=== PATIENT | female | born 1990 | race Caucasian/White ===

== ENCOUNTER 2016-08-16 18:30 | Emergency (ER) | payer MEDICAID ==
[2009-10-21 20:14] VITALS: BMI 37.7
== END 2016-08-16 21:13 | disposition left against medical advice (07) ==
LOC: D.ER 18:30
DX: M54.5 Low back pain (principal)

== ENCOUNTER 2016-12-17 20:14 | Emergency (ER) | payer MEDICAID ==
[2009-10-21 20:14] VITALS: BMI 37.7
== END 2016-12-17 21:18 | disposition home or self-care (01) ==
LOC: D.ER 20:14
DX: M54.5 Low back pain (principal)

== ENCOUNTER 2018-05-31 22:03 | Emergency (ER) | payer SELFPAY ==
[~2018-05-31] VITALS: Ht 177.8 cm; Wt 127.3 kg
[2018-05-31 22:29] VITALS: Ht 177.8 cm; Wt 127.3 kg
[2018-06-01] MEDS ORDERED: VOLTAREN75 MG PO (00:27)
[2018-06-01] MEDS ORDERED: MEDROL DOSE PACK4 MG PO (00:27)
[2018-06-01 00:45] VITALS: BP 118/86
== END 2018-06-01 00:45 | disposition home or self-care (01) ==
LOC: D.ER 22:03
DX: M72.2 Plantar fascial fibromatosis (principal)

== ENCOUNTER 2019-08-10 20:27 | Emergency (ER) | payer OTHER ==
[~2019-08-10] VITALS: Ht 177.8 cm; Wt 152.3 kg
[~2019-08-10 20:27] MED LIST: CYCLOBENZAPRINE10 MG PO; MEDROL DOSE PACK4 MG PO; NAPROSYN500 MG PO; PREDNISONE10 MG PO; VOLTAREN75 MG PO
[2019-08-10 20:31] VITALS: Ht 177.8 cm; Wt 152.3 kg
[2019-08-10] MEDS ORDERED: GABAPENTIN100 MG PO (20:33)
[2019-08-10] MEDS ORDERED: ZOLOFT50 MG PO (20:33)
[2019-08-10] MEDS ORDERED: SUMATRIPTAN SUC25 MG PO (20:33)
[2019-08-10] MEDS ORDERED: REXULTI1 MG PO (20:34)
[2019-08-10] MEDS ORDERED: REMERON15 MG PO (20:34)
[2019-08-10] MEDS ORDERED: KLONOPIN0.5 MG PO (20:34)
[2019-08-10 21:52] VITALS: BP 137/80
== END 2019-08-10 21:52 | disposition home or self-care (01) ==
LOC: D.ER 20:27
DX: G43.909 Migraine, unspecified, not intractable, without status migrainosus (principal); R11.0 Nausea; R42 Dizziness and giddiness

== ENCOUNTER 2020-09-20 01:53 | Emergency (ER) | payer OTHER ==
[~2020-09-20] VITALS: Ht 177.8 cm; Wt 150.1 kg
[~2020-09-20 01:53] MED LIST changes: +ABILIFY10 MG PO; +CORTISPORIN OTI10 M1 LEFT EAR; +GABAPENTIN100 MG PO; +KLONOPIN0.5 MG PO; +REMERON15 MG PO; +REXULTI1 MG PO; +SUMATRIPTAN SUC25 MG PO; +TRAZODONE HCL300 MG PO; +ZOLOFT50 MG PO
[2020-09-20 01:56] VITALS: Ht 177.8 cm; Wt 150.1 kg
[2020-09-20 02:12] LABS: BILIRUBIN NEGATIVE (NEGATIVE); KETONE NEGATIVE (NEGATIVE); NITRITE NEGATIVE (NEGATIVE); UROBILINOGEN NORMAL mg/dL (< 2)
[2020-09-20 02:28] LABS: BASOPHILS 1.2 % (0-2); EOSINOPHILS 2.4 % (0-7); HEMATOCRIT 37.8 % (36.0-48.0); HEMOGLOBIN 12.5 g/dL (12-16); LYMPHOCYTES 19.9 % (15-50); MCH 28.1 pg (26.0-34.0); MCHC 33.1 g/dL (31.0-37.0); MCV 84.9 fL (80.0-100.0); MEAN PLATELET VOLUME 8.7 fL (7.4-10.4); MONOCYTES 9.4 % (2-11); NEUTROPHILS 67.1 % (40-80); RBC 4.45 10x6/uL (4.00-5.40); RDW 14.7 % (11.5-14.5); WBC 11.4 10x3/uL (4.8-10.8)
[2020-09-20 02:31] LABS: PLATELET COUNT 313 10x3/uL (130-400)
[2020-09-20 02:32] LABS: HCG SERUM POSITIVE (NEGATIVE)
[2020-09-20 02:36] LABS: CALC OSMOLALITY 284 mosm/kg (275-300); CALCIUM 8.1 mg/dL (8.5-10.1); CHLORIDE - SERUM 108 mmol/L (98-107); CREATININE - SERUM 0.9 mg/dL (0.6-1.3); GLUCOSE 126 mg/dL (74-106); POTASSIUM - SERUM 3.4 mmol/L (3.5-5.1); SODIUM 142 mmol/L (136-145); UREA NITROGEN 12 mg/dL (7-18); eGFR NON AFRICAN AMERICAN 78 mL/min (90-120)
[2020-09-20 02:39] LABS: APTT 30.3 SECONDS (22.8-39.4); INR 1.11 (0.85-1.17); PROTIME 13.3 SECONDS (11.6-15.0)
[2020-09-20 02:53] LABS: ALBUMIN 3.5 g/dL (3.4-5.0); ALKALINE PHOSPHATASE 84 U/L (30-120); ALT (SGPT) 24 U/L (10-68); BILIRUBIN - TOTAL 0.16 mg/dL (0.2-1.3); CKMB 0.7 U/L (0.0-3.6); CREATINE KINASE 64 UL (21-215); HCG - QUANTITATIVE (MATERNAL) 653 mIU/mL; PRO BNP 83 pg/mL (0-125); PROTEIN - SERUM 6.9 g/dL (6.4-8.2)
[2020-09-20 02:54] LABS: TROPONIN-I < 0.017 ng/mL (0.000-0.060)
[2020-09-20 03:27] VITALS: BP 121/68
== END 2020-09-20 03:27 | disposition home or self-care (01) ==
LOC: D.ER 01:53
PROVIDERS: Family Medicine
DX: O99.341 Other mental disorders complicating pregnancy, first trimester (principal); Z3A.01 Less than 8 weeks gestation of pregnancy; R06.09 Other forms of dyspnea; F41.9 Anxiety disorder, unspecified

== ENCOUNTER 2020-10-01 19:09 | Emergency (ER) | payer OTHER ==
[~2020-10-01] VITALS: Ht 177.8 cm; Wt 150.5 kg
[2020-10-01 19:31] VITALS: Ht 177.8 cm; Wt 150.5 kg
[2020-10-01 20:05] LABS: BASOPHILS 0.5 % (0-2); EOSINOPHILS 1.2 % (0-7); HEMATOCRIT 39.6 % (36.0-48.0); MCH 28.5 pg (26.0-34.0); MCHC 32.9 g/dL (31.0-37.0); MCV 86.7 fL (80.0-100.0); MEAN PLATELET VOLUME 9.5 fL (7.4-10.4); MONOCYTES 7.5 % (2-11); NEUTROPHILS 77.8 % (40-80); PLATELET COUNT 292 10x3/uL (130-400); RBC 4.57 10x6/uL (4.00-5.40); RDW 14.9 % (11.5-14.5); WBC 13.6 10x3/uL (4.8-10.8)
[2020-10-01 20:17] LABS: CALC OSMOLALITY 274 mosm/kg (275-300); CALCIUM 8.8 mg/dL (8.5-10.1); CARBON DIOXIDE 22.8 mmol/L (21.0-32.0); CHLORIDE - SERUM 104 mmol/L (98-107); CREATININE - SERUM 0.7 mg/dL (0.6-1.3); GLUCOSE 107 mg/dL (74-106); POTASSIUM - SERUM 3.7 mmol/L (3.5-5.1); SODIUM 138 mmol/L (136-145); UREA NITROGEN 11 mg/dL (7-18); eGFR NON AFRICAN AMERICAN > 90 mL/min (90-120)
[2020-10-01 20:24] LABS: HCG URINE POSITIVE (NEGATIVE)
[2020-10-01 20:26] LABS: BACTERIA FEW HPF (<MOD); BILIRUBIN NEGATIVE (NEGATIVE); KETONE NEGATIVE mg/dL (< 1+); NITRITE NEGATIVE (NEGATIVE); PH 5.5 (5.0-8.0); SQUAMOUS EPITHELIAL <1 HPF (0-4); UROBILINOGEN NORMAL mg/dL (< 2); WHITE CELLS - URINE <1 HPF (0-4)
[2020-10-01 20:32] LABS: ALBUMIN 3.6 g/dL (3.4-5.0); ALKALINE PHOSPHATASE 95 U/L (30-120); ALT (SGPT) 29 U/L (10-68); BILIRUBIN - TOTAL 0.18 mg/dL (0.2-1.3); PROTEIN - SERUM 7.5 g/dL (6.4-8.2)
[2020-10-01] MEDS ORDERED: PROCTOFOAM-HC 110 GM RC (22:02)
[2020-10-01 22:34] LABS: UDS - AMPHET NEGATIVE QUAL (NEGATIVE); UDS - BARB NEGATIVE QUAL (NEGATIVE); UDS - BENZO NEGATIVE QUAL (NEGATIVE); UDS - COCAINE NEGATIVE QUAL (NEGATIVE); UDS - OPIATE NEGATIVE QUAL (NEGATIVE); UDS - PCP NEGATIVE QUAL (NEGATIVE); UDS - THC NEGATIVE QUAL (NEGATIVE)
[2020-10-02 00:39] VITALS: BP 150/90
== END 2020-10-02 00:40 | disposition home or self-care (01) ==
LOC: D.ER 19:09
PROVIDERS: Family Medicine
DX: O26.891 Other specified pregnancy related conditions, first trimester (principal); R19.7 Diarrhea, unspecified; R42 Dizziness and giddiness; E86.0 Dehydration; Z3A.01 Less than 8 weeks gestation of pregnancy

== ENCOUNTER 2020-10-14 23:21 | Emergency (ER) | payer OTHER ==
[~2020-10-14] VITALS: Ht 177.8 cm; Wt 154.2 kg
[~2020-10-14 23:21] MED LIST changes: +PROCTOFOAM-HC 110 GM RC
[2020-10-14 23:51] VITALS: Ht 177.8 cm; Wt 154.2 kg
[2020-10-15 00:25] LABS: BILIRUBIN NEGATIVE (NEGATIVE); KETONE NEGATIVE mg/dL (< 1+); NITRITE NEGATIVE (NEGATIVE); PH 5.5 (5.0-8.0); UROBILINOGEN NORMAL mg/dL (< 2)
[2020-10-15 00:36] LABS: BASOPHILS 0.5 % (0-2); EOSINOPHILS 1.4 % (0-7); HEMATOCRIT 38.2 % (36.0-48.0); HEMOGLOBIN 12.4 g/dL (12-16); LYMPHOCYTES 14.3 % (15-50); MCH 27.9 pg (26.0-34.0); MCHC 32.4 g/dL (31.0-37.0); MCV 86.2 fL (80.0-100.0); MEAN PLATELET VOLUME 9.3 fL (7.4-10.4); NEUTROPHILS 75.8 % (40-80); PLATELET COUNT 293 10x3/uL (130-400); RBC 4.44 10x6/uL (4.00-5.40); RDW 14.7 % (11.5-14.5); WBC 15.8 10x3/uL (4.8-10.8)
[2020-10-15 00:40] LABS: CALC OSMOLALITY 281 mosm/kg (275-300); CALCIUM 8.5 mg/dL (8.5-10.1); CARBON DIOXIDE 25.4 mmol/L (21.0-32.0); CHLORIDE - SERUM 105 mmol/L (98-107); CREATININE - SERUM 0.7 mg/dL (0.6-1.3); GLUCOSE 126 mg/dL (74-106); POTASSIUM - SERUM 3.6 mmol/L (3.5-5.1); SODIUM 140 mmol/L (136-145); UREA NITROGEN 14 mg/dL (7-18); eGFR NON AFRICAN AMERICAN > 90 mL/min (90-120)
[2020-10-15 00:44] LABS: APTT 29.9 SECONDS (22.8-39.4); INR 1.1 (0.85-1.17); PROTIME 13.1 SECONDS (11.6-15.0)
[2020-10-15 01:09] LABS: ALBUMIN 3.3 g/dL (3.4-5.0); ALKALINE PHOSPHATASE 100 U/L (30-120); ALT (SGPT) 22 U/L (10-68); BILIRUBIN - TOTAL 0.12 mg/dL (0.2-1.3); HCG - QUANTITATIVE (MATERNAL) 81341 mIU/mL; PROTEIN - SERUM 7.1 g/dL (6.4-8.2)
[2020-10-15 02:33] VITALS: BP 123/88
== END 2020-10-15 02:33 | disposition home or self-care (01) ==
LOC: D.ER 23:21
PROVIDERS: Family Medicine
DX: O26.891 Other specified pregnancy related conditions, first trimester (principal); R04.0 Epistaxis; Z3A.01 Less than 8 weeks gestation of pregnancy; R42 Dizziness and giddiness